=== PATIENT | male | born 1985 | race Asian ===

== ENCOUNTER 2017-02-11 08:38 | Outpatient (CLI) | payer OTHER ==
[2017-02-11 09:03] LABS: HEMATOCRIT 44.5 % (36-52); HEMOGLOBIN 13.7 g/dL (12.0-18.0); MEAN CORPUSCULAR HEMOGLOBIN 21 pg (27-31); MEAN CORPUSCULAR HGB CONC 31 g/dL (33-37); MEAN CORPUSCULAR VOLUME 69 fL (80-94); PLATELET COUNT (AUTO) 269 K/uL (140-450); RED BLOOD CELL COUNT(AUTO) 6.47 MIL/uL (4.20-6.10); RED CELL DISTRIBUTION WIDTH 14.6 % (11.6-13.7); WHITE BLOOD COUNT (AUTO) 7.9 K/uL (4.8-10.8)
[2017-02-11 09:19] LABS: ALBUMIN 4.1 g/dL (3.4-5.0); ANION GAP 12.7 (8-16); CARBON DIOXIDE 27.5 mmol/L (21-32); CHOL/HDL RATIO 5.8 (1-4.5); POTASSIUM 4.2 mmol/L (3.5-5.1); TOTAL BILIRUBIN 0.3 mg/dL (0.0-1.0)
[2017-02-11 09:44] LABS: EOSINOPHILS % (MANUAL) 2 % (0-4); LYMPHOCYTES % (MANUAL) 42 % (20-46); MONOCYTES % (MANUAL) 6 % (5-12)
== END 2017-02-11 21:22 | disposition home or self-care (01) ==
LOC: MLB 08:38
DX: Z00.01 Encounter for general adult medical examination with abnormal findings (principal); R42 Dizziness and giddiness; Z86.39 Personal history of other endocrine, nutritional and metabolic disease
CPT/HCPCS: 36415; 80053; 85025

== ENCOUNTER 2019-11-25 20:02 | Emergency (ER) | payer OTHER ==
[~2019-11-25] VITALS: Ht 167.6 cm; Wt 70.3 kg
--- NOTE | 2019-11-25 20:10 | NUR ---
PT AMBULATED TO BED 07 WITH STEADY GAIT
[2019-11-25 20:14] VITALS: BP 121/83
--- NOTE | 2019-11-25 20:17 | NUR ---
34M PRESENTS TO ED WITH C/O 7/10 PRECORDIAL CHEST PAIN THAT RADIATES TO LT LOWER BACK THAT STARTED X 1 DAY. PT STATES PAIN IS WORSE WHEN DEEP BREATHING. CBL SOUNDS. RR EVEN AND UNLABORED. DENIES SOB/COUGH. DENIES N/V/D. PMHX: HLD RX: LIPITOR NKA NEGATIVE FOR COVID SCREENING. PT WEARING MASK.
[2019-11-25 20:20] VITALS: BP 121/83
--- NOTE | 2019-11-25 20:24 | NUR ---
KANG CROCKETT AT BEDSIDE
== END 2019-11-25 20:31 | disposition home or self-care (01) ==
LOC: MED 20:02
DX: R07.9 Chest pain, unspecified (principal)
CPT/HCPCS: 93005; 99283